=== PATIENT | male | born 1990 | race Caucasian/White ===

== ENCOUNTER → 2018-07-07 16:27 | Outpatient (CLI) | payer OTHER, SELFPAY ==
--- NOTE | 2018-07-07 16:35 | RAD_ITS ---
STUDY: X-RAY - SOFT TISSUE NECK REASON FOR EXAM: Male, 28 years old. Sleep apnea. Cough. TECHNIQUE: AP and lateral view(s) of the neck were obtained. COMPARISON: None. FINDINGS: Normal visualized nasopharynx, oropharynx, hypopharynx. The airway measures 13.9 mm from the posterior aspect of the base of tongue to the anterior prevertebral soft tissue at the C3 level. Normal epiglottis. Normal visualized subglottic tracheal air column. Normal prevertebral soft tissue structures. Normal visualized osseous structures. The soft tissue structures are unremarkable. RAD/Neck for Soft Tissue IMPRESSION: Normal x-ray soft tissue neck. Electronically Signed: Jason Garcia, at 15:44 EST , Service support ,
== END ==
PROVIDERS: Family Provider Family Medicine; PCP Family Medicine; Referring Provider Otolaryngology Otolaryngology/Facial Plastic Surgery; Visit Provider Otolaryngology Otolaryngology/Facial Plastic Surgery
DX: G47.30 Sleep apnea, unspecified (principal); R05 Cough
CPT/HCPCS: 70360

== ENCOUNTER 2018-11-19 08:54 | Day surgery (SDC) | payer OTHER, SELFPAY ==
[2018-11-19 09:45] VITALS: BP 123/66; PULSE 67; RESP 14; TEMP 36.9; O2SAT 100; BMI 33.7
[2018-11-19] MEDS: Mixture 30 ML Bottle TOPICAL (11:20)
[2018-11-19] MEDS: Oxymetazoline 0.05% 1 SPRAY SPRAY.BTL 15 SPRAY (11:22)
[2018-11-19 11:47] VITALS: BP 123/66; BP 149/46; PULSE 61; RESP 16; TEMP 36.9; O2SAT 100
--- NOTE | 2018-11-19 11:47 | DCINST_ITS ---
You will use the following diet at home:: No restrictions - rinse nose with saline multiple times per day. Cannot rinse too much. May use afrin if necessary due to any oozing or marked stuffiness. Antibiotic cephalexin given for prevention of infection. Allergies/Adverse Reactions: Allergies No Known Allergies Allergy (Verified 11/11/18 09:10) Medications to take at Discharge Escitalopram Oxalate [Lexapro] 10 mg PO DAILY 11/11/18 Fluticasone 0.05% [Flonase Nasal [place]] 1 spray NASAL DAILY 11/11/18 Loratadine [Claritin] 10 mg PO DAILY 11/11/18 Primary Care Physician: Darrius Blue MD [Primary Care Provider] - Test Results: Test results from this visit will be discussed in further detail at your follow- up appointment, if applicable. Please Follow Up With: Cabrera Ramírez MD - follow up in 2-3 weeks
[2018-11-19 11:50] VITALS: BP 123/66; BP 143/74; PULSE 54; RESP 16; O2SAT 100
[2018-11-19 11:55] VITALS: BP 123/66; BP 142/87; PULSE 58; RESP 16; O2SAT 100
[2018-11-19 12:03] VITALS: BP 123/66; BP 140/85; PULSE 61; RESP 16; TEMP 36.9; O2SAT 100
--- NOTE | 2018-11-19 12:38 | PCM.OPRPT ---
Report of Operation Date of Procedure: 11/19/18 Pre-Operative Diagnosis: Nasal airway obstruction due to turbinate hypertrophy Post-Operative Diagnosis: Same Surgery/Procedure Performed:: Therapeutic outfracture and subsequent submucosal cautery of the inferior turbinates using Shyam bipolar probe Type of Anesthesia:: Local MAC Anesthesiologist: Darvin Ham CRNA Description of Procedure: The patient was transported to the operating room and placed on the OR table in the semi-recumbent position. After the administration of some intravenous sedation the nasal cavity was inspected. Turbinate hypertrophic change was evident. Afrin was instilled to bring about vasoconstriction and decongestion. After this, topical solution of Nato-Synephrine Xylocaine was sprayed into the nasal chamber to bring about surface anesthesia. Cottonoid pledgets moistened in this solution were placed in the nasal cavity, briefly, achieving topical anesthesia along the septum and the turbinates. Each inferior turbinate was then injected with 1% Xylocaine with epinephrine 1-100,000 to achieve an anesthetic block. The inferior turbinates were then laterally outfractured into the inferior meatus using a large [place] elevator. Thereafter submucosal cautery was accomplished using the Shyam bipolar probe. The probe was placed into the anterior aspect of the turbinate and when blanching occurred upon application of electrical current the probe was advanced along the inferomedial aspect of the turbinate accomplishing submucosal cautery. The posterior tips received additional cautery with benefit of the 0 degree endoscope for guidance. Once both sides have been adequately treated the procedure was terminated. The patient tolerated procedure well, did not sustain any intraoperative anesthetic or surgical complication, and was taken to the PACU where he was noted to be in satisfactory condition. Cabrera Ramírez MD
[2018-11-19 12:45] VITALS: BP 123/66
== END 2018-11-19 12:45 | disposition home or self-care (01) ==
LOC: SDC 08:54 → AC 08:57
PROVIDERS: Family Provider Family Medicine; PCP Family Medicine; Referring Provider Otolaryngology Otolaryngology/Facial Plastic Surgery; Visit Provider Otolaryngology Otolaryngology/Facial Plastic Surgery
PROC: (CPT 30930; principal; 2018-11-19 10:15)
DX: J34.3 Hypertrophy of nasal turbinates (principal); J98.8 Other specified respiratory disorders; G47.33 Obstructive sleep apnea (adult) (pediatric)
CPT/HCPCS: 00160; 30930; J7120

== ENCOUNTER → 2019-01-13 21:08 | Outpatient (CLI) | payer OTHER, SELFPAY | PROVIDERS: Family Provider Family Medicine; PCP Family Medicine; Referring Provider Otolaryngology Otolaryngology/Facial Plastic Surgery; Visit Provider Otolaryngology Otolaryngology/Facial Plastic Surgery | DX: G47.33 Obstructive sleep apnea (adult) (pediatric) (principal) | CPT/HCPCS: 95810 ==